=== PATIENT | female | born 1990 | race Caucasian/White ===

== ENCOUNTER 2017-07-18 22:06 | Emergency (ER) | payer OTHER ==
[2017-07-18 22:13] VITALS: BP 106/64; PULSE 52; RESP 14; TEMP 98.6; O2SAT 99
--- NOTE | 2017-07-18 22:14 | EDPHY ---
H & P Time Seen by Provider: 07/18/17 22:13 HPI/ROS: CHIEF COMPLAINT: Laceration left hand HISTORY OF PRESENT ILLNESS: 27-year-old [id number] female with up-to- date tetanus sustained accidental laceration to her left hand when she was cutting bread, laceration to the web space in the 1st and 2nd digit. No paresthesia. Up-to-date with immunizations in tetanus. PHYSICAL EXAM (Prior to examination, patient consented to physical exam, hands were washed and my usual and customary physical exam procedures followed) 1) GENERAL: Well-developed, well-nourished, alert and oriented. Appears to be in no acute distress. 2) HEAD: Normocephalic 3) HEENT: sclera anicteric 4) LUNGS: Breathing comfortably. 5) SKIN: 1 cm laceration between the web space to knee 1st and 2nd digit. 6) MUSCULOSKELETAL: Flexor extensor function grossly intact 7) NEUROLOGIC: Full sensation distally Constitutional: Initial Vital Signs Temperature (C) 37.0 C 07/18/17 22:09 Heart Rate 52 L 07/18/17 22:09 Respiratory Rate 14 07/18/17 22:09 Blood Pressure 106/64 07/18/17 22:09 O2 Sat (%) 99 07/18/17 22:09 O2 Delivery Mode Room Air Allergies/Adverse Reactions: No Known Allergies Allergy (Unverified 07/18/17 22:13) Home Medications: Medication Instructions Recorded NK [No Known Home Meds] 07/18/17 MDM/Departure - MDM Procedures: Procedure: Laceration repair. I explained the indications, risks and benefits for both laceration repair and anesthetic administration. Verbal consent was obtained from the patient . The laceration on the left hand was anesthetized using 0.5% bupivicaine with epinephrine . After anesthetic administered the patient was observed for a period of time and had no apparent adverse effects. The wound was cleaned, prepped, draped in normal sterile fashion and explored to its base. No foreign body seen, no foreign bodies palpated. There were no deep structures involved. No tendon injury was identified. The wound was repaired with 2 simple interrupted 5 O Ethilon suture. The wound repair was simple. The procedure was performed by myself. Patient has been informed that scarring will occur, although efforts have been made to minimize this. ED Course/Re-evaluation: Care of patient under supervision of secondary supervising physician Dr John . - Depart Disposition: Home, Routine, Self-Care Clinical Impression: Laceration of left hand Qualifiers: Encounter type: initial encounter Foreign body presence: without foreign body Qualified Code(s): S61.412A - Laceration without foreign body of left hand, initial encounter Condition: Good Instructions: Care For Your Stitches (ED), Laceration (ED) Additional Instructions: Return to the ER if you develop redness, swelling, discharge, warmth to the wound, red streaks going up your arm, or any other symptoms that concern you. Referrals: Return, to the ER in 10 days for suture removal [Other] - As per Instructions
== END 2017-07-18 22:58 | disposition home or self-care (01) ==
PROC: 0HQGXZZ Repair Left Hand Skin, External Approach (ICD-10-PCS; principal; 2017-07-18)
DX: S61.412A Laceration without foreign body of left hand, initial encounter (principal); W45.8XXA Other foreign body or object entering through skin, initial encounter